=== PATIENT | male | born 1935 | race Hispanic/Latino ===

== ENCOUNTER 2022-03-29 14:17 | Emergency (ER) | payer MEDICARE, OTHER ==
[~2022-03-29] VITALS: Ht 157.5 cm; Wt 77.1 kg
[2022-03-29] MEDS ORDERED: OCTYL 2-CYANOACRYLATE 1 EACH TP ONE ×5 (15:41→16:12)
[2022-03-29 18:01] VITALS: BP 159/96
== END 2022-03-29 18:03 | disposition home or self-care (01) ==
LOC: EDH 14:17
DX: S51.812A Laceration without foreign body of left forearm, initial encounter (principal); S51.811A Laceration without foreign body of right forearm, initial encounter; G20 Parkinson's disease; I10 Essential (primary) hypertension; Z88.1 Allergy status to other antibiotic agents; Z88.2 Allergy status to sulfonamides; W26.8XXA Contact with other sharp object(s), not elsewhere classified, initial encounter; Y93.89 Activity, other specified; Y92.89 Other specified places as the place of occurrence of the external cause; Y99.8 Other external cause status
CPT/HCPCS: 12004